=== PATIENT | male | born 1945 | race Caucasian/White ===

== ENCOUNTER 2017-01-28 19:56 | Inpatient (IN) | payer OTHER ==
[~2017-01-28] VITALS: Ht 167.6 cm; Wt 56.7 kg
[~2017-01-28 19:56] MED LIST: ADULT LOW STREN81 M2 PO; ADVAIR 500-501 EACH IH; ADVIL200 MG PO; COMBIVENT200 INHALA IH; DESYREL100 MG PO; DUONEB 2.5-0.5 M3 ML IH; DUONEB3 ML IH; HYCODAN SYRUP5 ML PO; LIPITOR10 MG PO; LIPITOR40 MG PO; LO-DOSE ASPIRIN81 M1 PO; LORTAB 10-3251 EACH PO; MIRAPEX1 MG PO; OMEPRAZOLE40 M1 PO; PAXIL20 MG PO; PAXIL40 MG PO; PERCOCET 5/31 TABLET PO; PREDNISONE10 MG PO; SYMBICORT60 INHALAT IH; TESSALON200 MG PO; VENTOLIN HFA18 GM IH
[2017-01-28 20:46] LABS: EOSINOPHIL (%) 1.3 % (0-5); EOSINOPHIL COUNT 0.1 K/uL (0-0.3); HEMATOCRIT 36.9 % (38.0-50.0); IMMATURE GRANULOCYTE (%) 0.4 % (0.0-0.7); INSTRUMENT ABS NEUTROPHIL CT 6.9 K/uL; LYMPHOCYTE COUNT 0.2 K/uL (1.0-2.8); MCH 28.4 PG (29.0-34.0); MCHC 33.1 G/DL (30.0-36.0); MEAN PLAT.VOLUME 9.6 uM^3 (9.0-12.4); MONOCYTE (%) 4.8 % (3-12); MONOCYTE COUNT 0.4 K/uL (0-0.8); NEUTROPHIL (%) 90.4 % (45-76); NEUTROPHIL COUNT 6.9 K/uL (1.8-6.4); PLATELET COUNT 178 K/uL (156-360); RBC DIS.WIDTH-CV 13.6 % (11.8-14.6); RBC DIS.WIDTH-SD 42.5 % (39-53); RED BLOOD COUNT 4.29 M/uL (4.00-5.50); WHITE BLOOD COUNT 7.6 K/uL (4.1-10.2)
[2017-01-28 20:50] LABS: CARBON DIOXIDE (BICARBONATE) 26.5 MEQ/L (20-31)
[2017-01-28 20:52] LABS: INTER. NORMALIZED RATIO 1.1; PROTHROMBIN TIME 12.2 SEC (10.2-12.9)
[2017-01-28 20:54] LABS: CHLORIDE 103 mEq/L (99-109); POTASSIUM 3.9 mEq/L (3.7-5.4); PTT 28.9 SEC (25-37); SODIUM 136 mEq/L (136-147)
[2017-01-28 20:57] LABS: GLUCOSE 98 mg/dL (70-99)
[2017-01-28 20:58] LABS: ANION GAP 12 MEQ/L (2-14)
[2017-01-28 20:59] LABS: TOTAL BILIRUBIN 1.1 mg/dL (0.0-1.0)
[2017-01-28 21:00] LABS: ALKALINE PHOSPHATASE 160 IU/L (3-129)
[2017-01-28 21:01] LABS: GFR ESTIMATE (CALCULATED) > 59 mL/min/
[2017-01-28 21:02] LABS: DIRECT BILIRUBIN 0.7 mg/dL (0.0-0.3); UREA NITROGEN (BUN) 14 mg/dL (9-23)
[2017-01-28 21:09] LABS: TROP-I INTERPRETATION NEGATIVE; TROPONIN-I 0.11 ng/mL (0.0-0.30)
[2017-01-28 21:25] LABS: ADD MIUA? NO; BILIRUBIN NEGATIVE; BLOOD NEGATIVE; COLOR AMBER ((YELLOW)); GLUCOSE (STRIP) NEGATIVE; KETONES NEGATIVE; LEUKOCYTES NEGATIVE; NITRITE NEGATIVE; PROTEIN (STRIP) NEGATIVE; SPECIFIC GRAVITY 1.024 (1.000-1.030); UROBILINOGEN 0.2 MG/DL (0.2-1.0)
[2017-01-28 21:33] LABS: UCUL ADDED? NO
[2017-01-29] VITALS (7 sets, daily range): BP systolic 93–120; BP diastolic 51–70
[2017-01-29] MEDS ORDERED: RIFADIN300 MG PO (00:18)
[2017-01-29] MEDS ORDERED: ETHAMBUTOL HCL400 MG PO (00:18)
[2017-01-29] MEDS ORDERED: AZITHROMYCIN500 M1 PO (00:18)
[2017-01-29 01:48] LABS: POINT-OF-CARE METER ID UU13113747
[2017-01-30 03:38] VITALS: BP 106/54
[2017-01-30 07:02] LABS: HEMATOCRIT 33.8 % (38.0-50.0); MCH 28.2 PG (29.0-34.0); MCHC 32.2 G/DL (30.0-36.0); MCV 87.6 FL (86-99); MEAN PLAT.VOLUME 10.2 uM^3 (9.0-12.4); PLATELET COUNT 189 K/uL (156-360); RBC DIS.WIDTH-CV 13.8 % (11.8-14.6); RED BLOOD COUNT 3.86 M/uL (4.00-5.50)
[2017-01-30 07:18] LABS: DIRECT BILIRUBIN 0.1 mg/dL (0.0-0.3); TOTAL BILIRUBIN 0.2 MG/DL (0.0-1.0)
[2017-01-30 07:19] LABS: ANION GAP 8 MEQ/L (2-14); CHLORIDE 105 MEQ/L (99-109); POTASSIUM 4.6 MEQ/L (3.7-5.4); SAMPLE HEMOLYSIS CHECK 0; SAMPLE ICTERIC CHECK 0; SAMPLE LIPEMIA CHECK 0; SODIUM 139 MEQ/L (136-147)
[2017-01-30 07:24] LABS: ALKALINE PHOSPHATASE 117 IU/L (3-129); GFR ESTIMATE (CALCULATED) > 59 mL/min/; UREA NITROGEN (BUN) 15 mg/dL (9-23)
[2017-01-30 07:25] LABS: GLUCOSE 152 mg/dL (70-99)
[2017-01-30 08:02] VITALS: BP 107/60
[2017-01-30 11:40] VITALS: BP 110/60
[2017-01-30 16:18] VITALS: BP 125/58
[2017-01-30 20:30] VITALS: BP 141/65
[2017-01-30 23:49] VITALS: BP 108/53
[2017-01-31 03:36] VITALS: BP 135/71
[2017-01-31 07:46] VITALS: BP 120/71
[2017-01-31 11:22] VITALS: BP 122/57
[2017-01-31 15:31] VITALS: BP 119/58
[2017-01-31 21:31] VITALS: BP 130/65
[2017-01-31 23:54] VITALS: BP 103/53
[2017-02-01 04:23] VITALS: BP 136/72
[2017-02-01 07:25] VITALS: BP 146/65
[2017-02-01] MEDS ORDERED: PREDNISONE20 MG PO (09:11)
== END 2017-02-01 10:45 | disposition home or self-care (01) | DRG 189 ==
LOC: EME 19:56 → EDOF 23:59 → ENRESERV 23:59 → 5EAST 23:59 → ENRESERV 01-29 00:21 → 5EAST 01-29 01:37
PROVIDERS: Emergency Medicine; Hospitalist; Internal Medicine Pulmonary Disease
DX: J96.21 Acute and chronic respiratory failure with hypoxia (principal); J44.1 Chronic obstructive pulmonary disease with (acute) exacerbation; A31.0 Pulmonary mycobacterial infection; G89.4 Chronic pain syndrome; J44.0 Chronic obstructive pulmonary disease with (acute) lower respiratory infection; I10 Essential (primary) hypertension; E78.5 Hyperlipidemia, unspecified; G25.81 Restless legs syndrome; F41.9 Anxiety disorder, unspecified; E78.00 Pure hypercholesterolemia, unspecified; F17.200 Nicotine dependence, unspecified, uncomplicated; J20.9 Acute bronchitis, unspecified; K21.9 Gastro-esophageal reflux disease without esophagitis; Z99.81 Dependence on supplemental oxygen; Z86.11 Personal history of tuberculosis; F32.1 Major depressive disorder, single episode, moderate
CPT/HCPCS: 71010; 80048; 80076; 81003; 82803; 82948; 83605; 83880; 84484; 85025; 85027; 85610; 85730; 87070; 87077; 87186; 87205; 90686; 93005; 94640; 94640 76; 94799; 99202; 99281; 99285; J0696; J1100; J1650; J2930; J7050; J7512; J7644

== ENCOUNTER 2017-04-09 15:01 | Day surgery (SDC) | payer OTHER ==
[~2017-04-09] VITALS: Ht 167.6 cm; Wt 60.0 kg
[~2017-04-09 15:01] MED LIST changes: +AZITHROMYCIN500 M1 PO; +ETHAMBUTOL HCL400 MG PO; +PREDNISONE20 MG PO; +RIFADIN300 MG PO
[2017-04-09 15:34] VITALS: BP 135/78
[2017-04-09 21:24] VITALS: BP 141/70
== END 2017-04-10 01:12 | disposition home or self-care (01) ==
LOC: SDC 15:01 → 2SOUTH 23:31 → ENRESERV 04-10 00:09 → CANRESERV 04-10 00:14 → ENRESERV 04-10 00:14 → 2SOUTH 04-10 01:12
DX: H33.42 Traction detachment of retina, left eye (principal); J44.9 Chronic obstructive pulmonary disease, unspecified; E78.5 Hyperlipidemia, unspecified; R73.03 Prediabetes; M81.0 Age-related osteoporosis without current pathological fracture; Z87.891 Personal history of nicotine dependence; G25.81 Restless legs syndrome; Z88.1 Allergy status to other antibiotic agents; Z88.8 Allergy status to other drugs, medicaments and biological substances; Z91.040 Latex allergy status; Z91.012 Allergy to eggs
CPT/HCPCS: G0378; J0690; J1100; J2060; J2795

== ENCOUNTER → 2017-07-07 | Outpatient (CLI) | payer MEDICARE, OTHER ==
[~2017-07-07] MED LIST changes: +INHALER; +PHENERGAN1.25 MG/ML PO
== END | disposition home or self-care (01) ==
LOC: CDC 10:07
DX: Z01.810 Encounter for preprocedural cardiovascular examination (principal); H33.052 Total retinal detachment, left eye; I45.4 Nonspecific intraventricular block; R94.31 Abnormal electrocardiogram [ECG] [EKG]
CPT/HCPCS: 93000

== ENCOUNTER 2017-07-09 07:58 | Day surgery (SDC) | payer OTHER ==
[~2017-07-09] VITALS: Ht 167.6 cm; Wt 58.1 kg
[~2017-07-09 07:58] MED LIST changes: -INHALER; -PHENERGAN1.25 MG/ML PO
[2017-07-09] MEDS ORDERED: PHENERGAN1.25 MG/ML PO (08:17)
[2017-07-09] MEDS ORDERED: INHALER (08:17)
== END 2017-07-09 09:10 | disposition home or self-care (01) ==
LOC: PAIN 07:58
PROC: 3E0S33Z Introduction of Anti-inflammatory into Epidural Space, Percutaneous Approach (ICD-10-PCS; principal; 2017-07-09)
DX: M54.12 Radiculopathy, cervical region (principal); M50.30 Other cervical disc degeneration, unspecified cervical region; M47.12 Other spondylosis with myelopathy, cervical region; Z87.891 Personal history of nicotine dependence; J43.9 Emphysema, unspecified; Z86.19 Personal history of other infectious and parasitic diseases; K21.9 Gastro-esophageal reflux disease without esophagitis; E78.5 Hyperlipidemia, unspecified; R73.01 Impaired fasting glucose; Z79.82 Long term (current) use of aspirin; Z88.1 Allergy status to other antibiotic agents; Z88.2 Allergy status to sulfonamides
CPT/HCPCS: J1100

== ENCOUNTER 2017-10-17 11:41 | Inpatient (IN) | payer OTHER ==
[~2017-10-17] VITALS: Ht 167.6 cm; Wt 51.4 kg
[~2017-10-17 11:41] MED LIST changes: +DESYREL 150 MG150 MG PO; -DESYREL100 MG PO; +INHALER; +PHENERGAN1.25 MG/ML PO
[2017-10-17 12:21] LABS: BASOPHIL (%) 0.3 % (0-1); EOSINOPHIL (%) 0.3 % (0-5); HEMATOCRIT 40.2 % (38.0-50.0); HEMOGLOBIN 13.6 G/DL (12.5-16.6); IMMATURE GRANULOCYTE (%) 0.2 % (0.0-0.7); LYMPHOCYTE (%) 10.1 % (15-42); MCH 29.8 PG (29.0-34.0); MCHC 33.8 G/DL (30.0-36.0); MCV 88.2 FL (86-99); MONOCYTE COUNT 0.5 K/uL (0-0.8); NEUTROPHIL (%) 84.1 % (45-76); NEUTROPHIL COUNT 8.7 K/uL (1.8-6.4); PLATELET COUNT 198 K/uL (156-360); RBC DIS.WIDTH-CV 12.8 % (11.8-14.6); RBC DIS.WIDTH-SD 41.2 % (39-53); RED BLOOD COUNT 4.56 M/uL (4.00-5.50); WHITE BLOOD COUNT 10.3 K/uL (4.1-10.2)
[2017-10-17 12:25] LABS: BICARBONATE 25.9 mEq/L (22-26); CARBOXY HGB 2.6 % (0-5); COMMENTS - BLOOD GASES A+C+; DEVICE NC; METHEMOGLOBIN 0.9 % (0-1.5); O2 FLOW 2 L/MIN; PCO2 39 mm Hg (35-45); PO2 63 mm Hg (80-100); SITE LR; TOTAL RESP RATE 24 resp/min; pH 7.43 (7.35-7.45)
[2017-10-17 12:26] LABS: BASE EXCESS 1.6 mEq/L (-3 to +3)
[2017-10-17 12:29] LABS: CHLORIDE 103 mEq/L (99-109); POTASSIUM 3.9 mEq/L (3.7-5.4); SODIUM 139 mEq/L (136-147)
[2017-10-17 12:30] LABS: GLUCOSE 123 mg/dL (70-99)
[2017-10-17 12:34] LABS: CREATININE 0.9 mg/dL (0.6-1.3); GFR ESTIMATE (CALCULATED) > 59 mL/min/ (58.99-99999)
[2017-10-17 12:35] LABS: UREA NITROGEN (BUN) 14 mg/dL (9-23)
[2017-10-17] MEDS ORDERED: PREDNISONE10 MG PO (13:58)
[2017-10-17] MEDS ORDERED: ZITHROMAX500 MG PO (14:00)
[2017-10-17] MEDS ORDERED: PERCOCET 7.51 TABLET PO (14:02)
[2017-10-17] MEDS ORDERED: ALPRAZOLAM0.25 M2 PO (14:04)
[2017-10-17 14:22] VITALS: BP 121/71
[2017-10-17 20:00] VITALS: BP 119/66
[2017-10-18] VITALS: BP 126/69
[2017-10-18 04:00] VITALS: BP 115/75
[2017-10-18 06:44] LABS: BASOPHIL (%) 0 % (0-1); EOSINOPHIL (%) 0 % (0-5); HEMOGLOBIN 12.6 G/DL (12.5-16.6); IMMATURE GRANULOCYTE (%) 0.5 % (0.0-0.7); LYMPHOCYTE (%) 11.2 % (15-42); LYMPHOCYTE COUNT 0.9 K/uL (1.0-2.8); MCH 28.8 PG (29.0-34.0); MCHC 32.3 G/DL (30.0-36.0); MCV 89.2 FL (86-99); MONOCYTE (%) 6.6 % (3-12); MONOCYTE COUNT 0.5 K/uL (0-0.8); NEUTROPHIL (%) 81.7 % (45-76); NEUTROPHIL COUNT 6.5 K/uL (1.8-6.4); PLATELET COUNT 195 K/uL (156-360); RBC DIS.WIDTH-CV 12.6 % (11.8-14.6); RBC DIS.WIDTH-SD 41.6 % (39-53); RED BLOOD COUNT 4.37 M/uL (4.00-5.50); WHITE BLOOD COUNT 7.9 K/uL (4.1-10.2)
[2017-10-18 07:05] LABS: ALBUMIN 3.5 G/DL (3.2-4.8); ALKALINE PHOSPHATASE 67 IU/L (3-129); ALT (GPT) 17 IU/L (3-49); AST (GOT) 16 IU/L (2-34); CHLORIDE 106 MEQ/L (99-109); CREATININE 0.8 MG/DL (0.6-1.3); GFR ESTIMATE (CALCULATED) > 59 mL/min/ (58.99-99999); GLUCOSE 117 mg/dL (70-99); SODIUM 140 MEQ/L (136-147); TOTAL BILIRUBIN 0.3 MG/DL (0.0-1.0); TOTAL PROTEIN 5.6 G/DL (6.4-8.3); UREA NITROGEN (BUN) 17 mg/dL (9-23)
[2017-10-18 07:06] LABS: POTASSIUM 5.1 MEQ/L (3.7-5.4)
[2017-10-18 07:09] VITALS: BP 131/63
[2017-10-18 15:16] VITALS: BP 117/60
[2017-10-18 19:28] VITALS: BP 123/58
[2017-10-19 00:33] VITALS: BP 115/57
[2017-10-19 03:27] VITALS: BP 110/66
[2017-10-19 06:24] LABS: BASOPHIL (%) 0.2 % (0-1); EOSINOPHIL (%) 0 % (0-5); HEMATOCRIT 37.5 % (38.0-50.0); HEMOGLOBIN 11.9 G/DL (12.5-16.6); IMMATURE GRANULOCYTE (%) 0.3 % (0.0-0.7); LYMPHOCYTE (%) 20.3 % (15-42); LYMPHOCYTE COUNT 1.3 K/uL (1.0-2.8); MCH 28.5 PG (29.0-34.0); MCHC 31.7 G/DL (30.0-36.0); MCV 89.9 FL (86-99); MONOCYTE (%) 7.4 % (3-12); MONOCYTE COUNT 0.5 K/uL (0-0.8); NEUTROPHIL (%) 71.8 % (45-76); NEUTROPHIL COUNT 4.5 K/uL (1.8-6.4); PLATELET COUNT 203 K/uL (156-360); RBC DIS.WIDTH-CV 12.9 % (11.8-14.6); RBC DIS.WIDTH-SD 42.8 % (39-53); RED BLOOD COUNT 4.17 M/uL (4.00-5.50); WHITE BLOOD COUNT 6.3 K/uL (4.1-10.2)
[2017-10-19 06:48] LABS: CHLORIDE 105 MEQ/L (99-109); CREATININE 0.9 MG/DL (0.6-1.3); GFR ESTIMATE (CALCULATED) > 59 mL/min/ (58.99-99999); GLUCOSE 138 mg/dL (70-99); POTASSIUM 5.1 MEQ/L (3.7-5.4); SODIUM 140 MEQ/L (136-147); UREA NITROGEN (BUN) 20 mg/dL (9-23)
[2017-10-19 08:06] VITALS: BP 130/60
[2017-10-19 16:15] VITALS: BP 119/56
[2017-10-19 19:27] VITALS: BP 135/63
[2017-10-20] VITALS (7 sets, daily range): BP systolic 108–133; BP diastolic 53–71
[2017-10-20 06:22] LABS: CHLORIDE 104 MEQ/L (99-109); CREATININE 0.9 MG/DL (0.6-1.3); GFR ESTIMATE (CALCULATED) > 59 mL/min/ (58.99-99999); POTASSIUM 4.7 MEQ/L (3.7-5.4); SODIUM 140 MEQ/L (136-147); UREA NITROGEN (BUN) 28 mg/dL (9-23)
[2017-10-20 06:23] LABS: GLUCOSE 98 mg/dL (70-99)
[2017-10-21 03:31] VITALS: BP 126/67
[2017-10-21 06:06] LABS: CHLORIDE 103 MEQ/L (99-109); CREATININE 0.9 MG/DL (0.6-1.3); GFR ESTIMATE (CALCULATED) > 59 mL/min/ (58.99-99999); GLUCOSE 89 mg/dL (70-99); POTASSIUM 4.5 MEQ/L (3.7-5.4); SODIUM 140 MEQ/L (136-147); UREA NITROGEN (BUN) 32 mg/dL (9-23)
[2017-10-21 07:49] VITALS: BP 118/68
[2017-10-21 15:57] VITALS: BP 117/58
[2017-10-21 23:51] VITALS: BP 128/69
[2017-10-22 09:02] VITALS: BP 133/69
[2017-10-22] MEDS ORDERED: PREDNISONE10 MG PO (11:28)
[2017-10-22] MEDS ORDERED: PERCOCET 7.51 TABLET PO (11:28)
[2017-10-22] MEDS ORDERED: SPIRIVA1 INHALATI IH (11:28)
== END 2017-10-22 13:54 | disposition home health service (06) | DRG 189 ==
LOC: EME 11:41 → 5SOUTH 13:09 → EDOF 13:09 → ENRESERV 13:12 → 5SOUTH 14:15
PROVIDERS: Emergency Medicine; Family Medicine; Hospitalist; Internal Medicine
DX: J96.21 Acute and chronic respiratory failure with hypoxia (principal); J44.1 Chronic obstructive pulmonary disease with (acute) exacerbation; R64 Cachexia; Z68.1 Body mass index [BMI] 19.9 or less, adult; J44.0 Chronic obstructive pulmonary disease with (acute) lower respiratory infection; F33.9 Major depressive disorder, recurrent, unspecified; A31.0 Pulmonary mycobacterial infection; E78.5 Hyperlipidemia, unspecified; G89.4 Chronic pain syndrome; I10 Essential (primary) hypertension; Z66 Do not resuscitate; K21.9 Gastro-esophageal reflux disease without esophagitis; J20.9 Acute bronchitis, unspecified; F17.210 Nicotine dependence, cigarettes, uncomplicated; F41.9 Anxiety disorder, unspecified; Z99.81 Dependence on supplemental oxygen; Z79.51 Long term (current) use of inhaled steroids; Z88.1 Allergy status to other antibiotic agents
CPT/HCPCS: 36600; 71045; 80048; 80053; 82803; 85025; 87070; 87205; 93005; 94640; 94640 76; 94760; 94799; 99281; 99284; J0456; J0692; J0696; J1650; J2920; J2930; J7512

== ENCOUNTER 2017-11-14 19:00 | Inpatient (IN) | payer OTHER ==
[~2017-11-14] VITALS: Ht 167.6 cm; Wt 52.8 kg
[~2017-11-14 19:00] MED LIST changes: +ALPRAZOLAM0.25 M2 PO; +PERCOCET 7.51 TABLET PO; +SPIRIVA1 INHALATI IH; +ZITHROMAX500 MG PO
[2017-11-14 20:13] LABS: HEMATOCRIT 40.7 % (38.0-50.0); HEMOGLOBIN 13.7 G/DL (12.5-16.6); MCH 29.7 PG (29.0-34.0); MCHC 33.7 G/DL (30.0-36.0); MCV 88.3 FL (86-99); PLATELET COUNT 172 K/uL (156-360); RBC DIS.WIDTH-CV 13.1 % (11.8-14.6); RBC DIS.WIDTH-SD 42.5 % (39-53); RED BLOOD COUNT 4.61 M/uL (4.00-5.50); WHITE BLOOD COUNT 3.4 K/uL (4.1-10.2)
[2017-11-14 20:18] LABS: CHLORIDE 103 mEq/L (99-109); POTASSIUM 4.7 mEq/L (3.7-5.4); SODIUM 140 mEq/L (136-147)
[2017-11-14 20:20] LABS: GLUCOSE 134 mg/dL (70-99)
[2017-11-14 20:24] LABS: CREATININE 1.1 mg/dL (0.6-1.3); GFR ESTIMATE (CALCULATED) > 59 mL/min/ (58.99-99999)
[2017-11-14 20:25] LABS: UREA NITROGEN (BUN) 24 mg/dL (9-23)
[2017-11-14 21:08] LABS: COMMENTS - BLOOD GASES C+A+; O2 FLOW 5 L/MIN; SITE RR
[2017-11-14 21:09] LABS: BASE EXCESS 3.4 mEq/L (-3 to +3); BICARBONATE 28.5 mEq/L (22-26); CARBOXY HGB 3.2 % (0-5); DEVICE NC; METHEMOGLOBIN 0.8 % (0-1.5); PCO2 44 mm Hg (35-45); PO2 68 mm Hg (80-100); pH 7.42 (7.35-7.45)
[2017-11-14 21:17] LABS: HEMATOCRIT 41.6 % (38.0-50.0); MCH 29.5 PG (29.0-34.0); MCHC 33.7 G/DL (30.0-36.0); MCV 87.8 FL (86-99); PLATELET COUNT 178 K/uL (156-360); RED BLOOD COUNT 4.74 M/uL (4.00-5.50); WHITE BLOOD COUNT 3.7 K/uL (4.1-10.2)
[2017-11-14 21:25] LABS: ALBUMIN 4.1 g/dL (3.2-4.8)
[2017-11-14 21:26] LABS: CHLORIDE 103 mEq/L (99-109); SODIUM 141 mEq/L (136-147)
[2017-11-14 21:28] LABS: GLUCOSE 113 mg/dL (70-99); TOTAL PROTEIN 6.5 g/dL (6.4-8.3)
[2017-11-14 21:30] LABS: TOTAL BILIRUBIN 0.2 mg/dL (0.0-1.0)
[2017-11-14 21:31] LABS: ALKALINE PHOSPHATASE 80 IU/L (3-129)
[2017-11-14 21:32] LABS: GFR ESTIMATE (CALCULATED) > 59 mL/min/ (58.99-99999)
[2017-11-14 21:33] LABS: AST (GOT) 18 IU/L (2-34); UREA NITROGEN (BUN) 25 mg/dL (9-23)
[2017-11-14 21:34] LABS: ALT (GPT) 22 IU/L (3-49)
[2017-11-14 21:38] LABS: TROP-I INTERPRETATION NEGATIVE; TROPONIN-I 0.02 ng/mL (0.0-0.30)
[2017-11-14] MEDS ORDERED: ALEVE220 MG PO (21:57)
[2017-11-14] MEDS ORDERED: FLONASE16 G1 BOTH NARES (21:57)
[2017-11-14] MEDS ORDERED: WELLBUTRIN75 MG PO (21:58)
[2017-11-14 22:01] LABS: ABS NEUTROPHIL COUNT 2.4; ATYPICAL LYMPHOCYTE 6.3 %; BAND NEUTROPHILS 0.9 % (0-8.0); BASOPHILS 2.7 %; EOSINOPHIL ABS CT 0; EOSINOPHILS 0.9 % (0-5.0); LYMPHOCYTES 19.8 % (15.0-45.0); MONOCYTES 6.3 % (0-9.0); PLAT.SUFFICIENCY ADEQUATE; SEG.NEUTROPHILS 63.1 % (46.0-76.0)
[2017-11-15 00:48] VITALS: BP 130/74
[2017-11-15 04:27] VITALS: BP 121/70
[2017-11-15 06:51] LABS: BASOPHIL (%) 0.5 % (0-1); EOSINOPHIL (%) 0 % (0-5); HEMATOCRIT 39.1 % (38.0-50.0); HEMOGLOBIN 12.6 G/DL (12.5-16.6); IMMATURE GRANULOCYTE (%) 0.2 % (0.0-0.7); LYMPHOCYTE (%) 31.7 % (15-42); LYMPHOCYTE COUNT 1.3 K/uL (1.0-2.8); MCH 28.4 PG (29.0-34.0); MCHC 32.2 G/DL (30.0-36.0); MCV 88.3 FL (86-99); MONOCYTE (%) 5.6 % (3-12); MONOCYTE COUNT 0.2 K/uL (0-0.8); NEUTROPHIL COUNT 2.6 K/uL (1.8-6.4); PLATELET COUNT 173 K/uL (156-360); RBC DIS.WIDTH-SD 42.2 % (39-53); RED BLOOD COUNT 4.43 M/uL (4.00-5.50); WHITE BLOOD COUNT 4.1 K/uL (4.1-10.2)
[2017-11-15 07:16] LABS: CHLORIDE 105 MEQ/L (99-109); CREATININE 0.7 MG/DL (0.6-1.3); GFR ESTIMATE (CALCULATED) > 59 mL/min/ (58.99-99999); GLUCOSE 124 mg/dL (70-99); POTASSIUM 4.4 MEQ/L (3.7-5.4); SODIUM 142 MEQ/L (136-147); UREA NITROGEN (BUN) 18 mg/dL (9-23)
[2017-11-15 09:05] VITALS: BP 130/77
[2017-11-15 16:04] VITALS: BP 132/73
[2017-11-15 19:30] VITALS: BP 156/78
[2017-11-15 23:57] VITALS: BP 150/74
[2017-11-16 03:56] VITALS: BP 167/77
[2017-11-16 06:26] LABS: BASOPHIL (%) 0.2 % (0-1); EOSINOPHIL (%) 0 % (0-5); HEMATOCRIT 38.1 % (38.0-50.0); HEMOGLOBIN 12.4 G/DL (12.5-16.6); IMMATURE GRANULOCYTE (%) 0.5 % (0.0-0.7); LYMPHOCYTE (%) 19.7 % (15-42); LYMPHOCYTE COUNT 1.1 K/uL (1.0-2.8); MCH 28.8 PG (29.0-34.0); MCHC 32.5 G/DL (30.0-36.0); MCV 88.6 FL (86-99); MONOCYTE (%) 4.7 % (3-12); MONOCYTE COUNT 0.3 K/uL (0-0.8); NEUTROPHIL (%) 74.9 % (45-76); NEUTROPHIL COUNT 4.3 K/uL (1.8-6.4); PLATELET COUNT 180 K/uL (156-360); RBC DIS.WIDTH-CV 13.2 % (11.8-14.6); RBC DIS.WIDTH-SD 42.6 % (39-53); WHITE BLOOD COUNT 5.7 K/uL (4.1-10.2)
[2017-11-16 06:52] LABS: ALBUMIN 3.7 G/DL (3.2-4.8); ALKALINE PHOSPHATASE 60 IU/L (3-129); ALT (GPT) 16 IU/L (3-49); AST (GOT) 13 IU/L (2-34); CHLORIDE 107 MEQ/L (99-109); CREATININE 0.8 MG/DL (0.6-1.3); GFR ESTIMATE (CALCULATED) > 59 mL/min/ (58.99-99999); GLUCOSE 116 mg/dL (70-99); POTASSIUM 4.6 MEQ/L (3.7-5.4); SODIUM 142 MEQ/L (136-147); TOTAL BILIRUBIN 0.2 MG/DL (0.0-1.0); TOTAL PROTEIN 5.5 G/DL (6.4-8.3); UREA NITROGEN (BUN) 14 mg/dL (9-23)
[2017-11-16 07:47] VITALS: BP 154/80
[2017-11-16 15:35] VITALS: BP 149/79
[2017-11-16 18:50] VITALS: BP 149/70
[2017-11-16 23:31] VITALS: BP 148/73
[2017-11-17 03:45] VITALS: BP 132/63
[2017-11-17 06:03] LABS: BASOPHIL (%) 0.2 % (0-1); EOSINOPHIL (%) 0 % (0-5); IMMATURE GRANULOCYTE (%) 0.8 % (0.0-0.7); LYMPHOCYTE (%) 16.4 % (15-42); LYMPHOCYTE COUNT 1.1 K/uL (1.0-2.8); MCH 28.7 PG (29.0-34.0); MCHC 32.4 G/DL (30.0-36.0); MCV 88.5 FL (86-99); MONOCYTE (%) 3.4 % (3-12); MONOCYTE COUNT 0.2 K/uL (0-0.8); NEUTROPHIL (%) 79.2 % (45-76); NEUTROPHIL COUNT 5.2 K/uL (1.8-6.4); PLATELET COUNT 213 K/uL (156-360); RBC DIS.WIDTH-CV 13.3 % (11.8-14.6); RBC DIS.WIDTH-SD 43.8 % (39-53); RED BLOOD COUNT 4.18 M/uL (4.00-5.50); WHITE BLOOD COUNT 6.5 K/uL (4.1-10.2)
[2017-11-17 06:28] LABS: CHLORIDE 105 MEQ/L (99-109); CREATININE 0.8 MG/DL (0.6-1.3); GFR ESTIMATE (CALCULATED) > 59 mL/min/ (58.99-99999); GLUCOSE 139 mg/dL (70-99); POTASSIUM 4.3 MEQ/L (3.7-5.4); SODIUM 141 MEQ/L (136-147); UREA NITROGEN (BUN) 18 mg/dL (9-23)
[2017-11-17 07:35] VITALS: BP 144/77
[2017-11-17 11:50] VITALS: BP 140/70
[2017-11-17 15:40] VITALS: BP 141/73
[2017-11-17 20:18] VITALS: BP 145/65
[2017-11-18 00:07] VITALS: BP 117/59
[2017-11-18 06:58] LABS: HEMATOCRIT 37.8 % (38.0-50.0); MCH 28.4 PG (29.0-34.0); MCHC 31.7 G/DL (30.0-36.0); MCV 89.6 FL (86-99); PLATELET COUNT 216 K/uL (156-360); RBC DIS.WIDTH-CV 13.5 % (11.8-14.6); RBC DIS.WIDTH-SD 44.6 % (39-53); RED BLOOD COUNT 4.22 M/uL (4.00-5.50); WHITE BLOOD COUNT 6.2 K/uL (4.1-10.2)
[2017-11-18 07:28] VITALS: BP 135/73
[2017-11-18 07:36] LABS: CHLORIDE 106 MEQ/L (99-109); CREATININE 0.9 MG/DL (0.6-1.3); GFR ESTIMATE (CALCULATED) > 59 mL/min/ (58.99-99999); POTASSIUM 4.4 MEQ/L (3.7-5.4); SODIUM 143 MEQ/L (136-147); UREA NITROGEN (BUN) 25 mg/dL (9-23)
[2017-11-18 07:39] LABS: GLUCOSE 90 mg/dL (70-99)
[2017-11-18 11:32] VITALS: BP 144/70
[2017-11-18] MEDS ORDERED: SPIRIVA1 INHALATI IH (15:09)
[2017-11-18] MEDS ORDERED: AUGMENTIN875 MG PO (15:09)
[2017-11-18] MEDS ORDERED: MUCINEX600 MG PO (15:09)
[2017-11-18] MEDS ORDERED: PREDNISONE10 MG PO (15:09)
[2017-11-18 15:44] VITALS: BP 163/79
[2017-11-18 20:07] VITALS: BP 136/66
[2017-11-18 23:32] VITALS: BP 127/58
[2017-11-19 04:06] VITALS: BP 124/56
[2017-11-19 07:33] VITALS: BP 25/66
== END 2017-11-19 12:19 | disposition home or self-care (01) | DRG 190 ==
LOC: EME 19:00 → EDOF 23:31 → 2EAST 23:31 → ENRESERV 23:33 → 2EAST 11-15 00:34
PROVIDERS: Emergency Medicine; Hospitalist; Internal Medicine
DX: J44.1 Chronic obstructive pulmonary disease with (acute) exacerbation (principal); J44.0 Chronic obstructive pulmonary disease with (acute) lower respiratory infection; J96.21 Acute and chronic respiratory failure with hypoxia; J18.9 Pneumonia, unspecified organism; A31.0 Pulmonary mycobacterial infection; Z99.81 Dependence on supplemental oxygen; J84.10 Pulmonary fibrosis, unspecified; I10 Essential (primary) hypertension; E78.5 Hyperlipidemia, unspecified; Z66 Do not resuscitate; F32.9 Major depressive disorder, single episode, unspecified; R79.1 Abnormal coagulation profile; F17.210 Nicotine dependence, cigarettes, uncomplicated
CPT/HCPCS: 36600; 71045; 71046; 71275; 80048; 80053; 82803; 83605; 84484; 85025; 85027; 85379; 87040; 87070; 87205; 87449; 93005; 94640; 94644; 94799; 99281; 99285; J0295; J0456; J0692; J1644; J2920; J2930; J7030; J7050; J7512